=== PATIENT | female | born 1935 | race Caucasian/White ===

== ENCOUNTER 2021-01-17 17:42 | Observation (INO) | payer MEDICARE ==
[~2021-01-17] VITALS: Ht 157.5 cm; Wt 63.5 kg
[2021-01-17 18:36] LABS: Source, Urine Catheter
[2021-01-17 18:41] LABS: BASOPHILS ABSOLUTE AUTO 0.05 K/mm3 (0.00-0.23); BASOPHILS PERCENT AUTO 0 % (0-2); EOSINOPHILS ABSOLUTE AUTO 0.04 K/mm3 (0.00-0.68); EOSINOPHILS PERCENT AUTO 0 % (0-6); Hematocrit 35.7 % (33.0-51.0); Hemoglobin 11.7 g/dL (11.5-16.0); IMMATURE GRAN ABSOLUTE AUTO 0.12 K/mm3 (0.00-0.10); IMMATURE GRAN PERCENT AUTO 1 % (0-1); LYMPHOCYTES ABSOLUTE AUTO 1.03 K/mm3 (0.84-5.20); LYMPHOCYTES PERCENT AUTO 9 % (21-46); MONOCYTES ABSOLUTE AUTO 1.34 K/mm3 (0.16-1.47); MONOCYTES PERCENT AUTO 12 % (4-13); Mean Corpuscular HGB 29.3 pg (26.0-34.0); Mean Corpuscular HGB Conc 32.8 g/dL (31.5-36.5); Mean Corpuscular Volume 89 fL (80-100); Mean Platelet Volume 9.7 fL (9.1-12.4); NEUTROPHILS ABSOLUTE AUTO 8.98 K/mm3 (1.96-9.15); NEUTROPHILS PERCENT AUTO 78 % (41-73); Platelet Count 343 K/mm3 (150-400); RDW Coefficient Variation 13.6 % (11.7-14.2); RDW Standard Deviation 44.5 fL (35.1-46.3); White Blood Cell Count 11.56 K/mm3 (4.00-11.30)
[2021-01-17 18:43] LABS: Appearance, Urine Cloudy (Clear); Bilirubin, Urine Neg (Neg); Blood, Urine 2+ (Neg); Color, Urine Yellow (P-Yellow); Glucose Qualitative, Urine Neg (Neg); Ketones, Urine 2+ (Neg); Leukocyte Esterase, Urine 2+ (Neg); Nitrite, Urine Neg (Neg); Protein, Urine 4+ (Neg); Urobilinogen, Urine NORM (Normal)
[2021-01-17 18:55] LABS: White Blood Cells, Urine 50-100 /hpf (0-5)
[2021-01-17 18:56] LABS: Bacteria Many /hpf; Squamous Epithelial Cells Many /hpf (Few)
[2021-01-17 19:06] LABS: Alanine Aminotransfer (ALT/SGP 6 U/L (12-78); Albumin, Blood 2.9 g/dL (3.4-5.0); Albumin/Globulin Ratio 0.6 (0.8-1.8); Alk Phos 88 U/L (50-136); Anion Gap 7 mmol/L (6-16); Aspartate Aminotrans (AST/SGOT 10 U/L (12-37); Bilirubin, Total 0.5 mg/dL (0.1-1.0); Blood Urea Nitrogen 21 mg/dL (8-24); Bun/Creatinine Ratio 31.2 (12.0-20.0); CO2, Blood 23 mmol/L (21-32); Calcium, Blood 9.4 mg/dL (8.5-10.1); Chloride, Blood 106 mmol/L (98-108); Creatinine, Blood 0.67 mg/dL (0.40-1.00); Globulin, Blood 4.5 g/dL (2.2-4.0); Glomerular Filtration Rate >60 (60-); Glucose, Blood 133 mg/dL (70-99); Potassium, Blood 3.9 mmol/L (3.5-5.5); Sodium, Blood 136 mmol/L (136-145); Total Protein, Blood 7.4 g/dL (6.4-8.2)
[2021-01-17] MEDS ORDERED: AMLO5 PO (20:15)
[2021-01-17] MEDS ORDERED: LOSA50 PO (21:26)
[2021-01-17] MEDS ORDERED: CARBIDOPA-LEVO1 EA19 PO (21:26)
[2021-01-17] MEDS ORDERED: CIPR250 PO (21:26)
[2021-01-17] MEDS ORDERED: METF500 PO (21:27)
[2021-01-17] MEDS ORDERED: SERT50 PO (21:27)
[2021-01-17] MEDS ORDERED: METHI10 PO (21:27)
[2021-01-17] MEDS ORDERED: ATOR20 PO (21:27)
[2021-01-17] MEDS ORDERED: GLIP5ER PO (21:28)
[2021-01-17] MEDS ORDERED: ALEN70 PO (21:28)
[2021-01-17] MEDS ORDERED: GLIP5 PO (21:28)
[2021-01-17 21:49] LABS: Troponin I <0.015 ng/mL (0.000-0.040)
--- NOTE | 2021-01-18 04:44 | NUR ---
SUMMARY PT ARRIVED TO FLOOR IN NO DISTRESS W/ SON IN ATTENDANCE. PT HAS NOTED GARBBLED SPEECH AND HAS DIFFICULTY FINDING HER WORDS. PT IS A/Ox4 BUT HAS DIFFICULTY COMMUNICATING. PT HAS SOME NOTED CHOKING WITH WATER. PT MEDS GIVEN CRUSHED IN APPLESAUCE. PT AND SON REPORT THIS IS NEW ISSUE. PT MIN IS DRAINING TO GRAVITY. PT USES CALL LIGHT APPROPIATELY. PT CURRENTLY SLEEPING AND IN NO DISTRESS. CALL LIGHT IN REACH AND BED ALARM ON.
[2021-01-18 05:13] LABS: Hematocrit 37.8 % (33.0-51.0); Mean Corpuscular HGB 29.4 pg (26.0-34.0); Mean Corpuscular HGB Conc 31.7 g/dL (31.5-36.5); Mean Corpuscular Volume 93 fL (80-100); Mean Platelet Volume 10.7 fL (9.1-12.4); Platelet Count 340 K/mm3 (150-400); RDW Coefficient Variation 13.6 % (11.7-14.2); RDW Standard Deviation 46.5 fL (35.1-46.3); Red Blood Cell Count 4.08 M/mm3 (3.80-5.20); White Blood Cell Count 10.21 K/mm3 (4.00-11.30)
[2021-01-18 05:51] LABS: Anion Gap 7 mmol/L (6-16); Blood Urea Nitrogen 18 mg/dL (8-24); Bun/Creatinine Ratio 30.4 (12.0-20.0); CO2, Blood 23 mmol/L (21-32); Calcium, Blood 8.9 mg/dL (8.5-10.1); Chloride, Blood 108 mmol/L (98-108); Creatinine, Blood 0.59 mg/dL (0.40-1.00); Glomerular Filtration Rate >60 (60-); Glucose, Blood 123 mg/dL (70-99); Potassium, Blood 4.7 mmol/L (3.5-5.5); Sodium, Blood 138 mmol/L (136-145)
--- NOTE | 2021-01-18 17:49 | NUR ---
SHIFT SUMMARY PT AXO X4 THIS SHIFT, PLEASANT AND COOPERATIVE WITH CARE THOUGH SLURRED AND GARBLED SPEACH. DIFFICULTY RECALLING WORDS WELL. HTN NOTED AT 0749 AND 1101, MEDICATED AND REASSESSED AT 1432, IMPROVED. MEDICATED FOR HEADACHE PER EMAR. ICE PACK TO FOREHEAD FOR AGUIRRE WELL. PHYSICAL THERAPY ASSESSED PT, SEE NOTE. PT;S DAUGHTER STATES THAT PT HAS NEUROLOGY APPOINTMENT AT 0830 TOMORROW MORNING VIA TELEHEALTH. PT'S GRANDDAUGHTER WILL COME TO ASSIST PATIENT SO THAT PT CAN ATTEND HER APPOINTMENT. PT NPO AWAITING SPEECH EVAL. FLUIDS INFUSING PER EMAR. BED IN LOW POSITION, CALL LIGHT WITHIN REACH. MIN PATENT AND DRAINING DARK YELLOW URINE.
--- NOTE | 2021-01-19 06:11 | NUR ---
SUMMARY PT MED X1 FOR NAUSEA WITHOUT EMESIS.CE SX PLACED IN ROOM FOR SAFETY.PT NPO PENDING SWALLOW EVAL.RESTING WITHOUT C/O.
[2021-01-19 17:14] LABS: Influenza A, PCR NEGATIVE (NEGATIVE); Influenza B, PCR NEGATIVE (NEGATIVE); Resp Syncytial Virus, PCR NEGATIVE (NEGATIVE); SARS-Cov-2 (COVID-19) PCR, MMC NEGATIVE (NEGATIVE)
--- NOTE | 2021-01-19 17:51 | NUR ---
COBRA TRANSFER PT TRANSFERRED TO [facility] ORDERED VIA [facility]. PT's GRANDSON AT BEDSIDE PRIOR TO COBRA TRANSFER. PT A&OX4, GARBLED SPEECH, SLOW TO RESPOND, PT ABLE TO MAKE NEEDS KNOWN. SOME EXPRESSIVE APHASIA NOTED. REPORT TO GIVEN TO JC VASQUEZ FROM [facility]. IV AT L WRIST C/D/I. NO ACUTE CHANGES NOTED TO PATIENT THIS SHIFT. PT MEDICATED FOR A MINOR HEADACHE PER EMAR THIS SHIFT. DENIES ANY DISCOMFORT PRIOR TO TRANSFER. NO COMPLAINTS OR CONCERNS NOTED FROM PATIENT OR FAMILY THIS SHIFT.
== END 2021-01-19 17:48 | disposition short-term general hospital (02) ==
LOC: ER 17:42 → MEDS 17:43
PROVIDERS: Emergency Medicine; Internal Medicine; Nurse Practitioner Acute Care; ADMIT Family Medicine
DX: S06.5X0A Traumatic subdural hemorrhage without loss of consciousness, initial encounter (principal); N39.0 Urinary tract infection, site not specified; R41.82 Altered mental status, unspecified; G20 Parkinson's disease; R53.1 Weakness; E03.9 Hypothyroidism, unspecified; R54 Age-related physical debility; R63.3 Feeding difficulties; R25.2 Cramp and spasm; E11.22 Type 2 diabetes mellitus with diabetic chronic kidney disease; I12.9 Hypertensive chronic kidney disease with stage 1 through stage 4 chronic kidney disease, or unspecified chronic kidney disease; N18.9 Chronic kidney disease, unspecified; R41.4 Neurologic neglect syndrome; W19.XXXA Unspecified fall, initial encounter; Z29.8 Encounter for other specified prophylactic measures; Z66 Do not resuscitate; Z79.4 Long term (current) use of insulin; Z20.822 Contact with and (suspected) exposure to COVID-19
CPT/HCPCS: 0241U; 36415; 51702; 70450; 80048; 80053; 81001; 82947; 83605; 84484; 85025; 85027; 87040; 87086; 92610; 96365; 96372; 96375; 96376; 97110; 97161; 99285-25; A9270; A9270-GY; G0378; J0696; J1650; J2405; J7030